=== PATIENT | male | born 1990 | race Caucasian/White ===

== ENCOUNTER → 2023-07-06 | Outpatient (CLI) | payer OTHER | LOC: MHCPAIN 08:15 | DX: M47.897 Other spondylosis, lumbosacral region (principal); M54.17 Radiculopathy, lumbosacral region | CPT/HCPCS: G0463 ==

== ENCOUNTER → 2023-07-21 | Outpatient (CLI) | payer OTHER ==
[~2023-07-21] MED LIST: Iohexol 300 - 10 ML VIAL ONE; Lidocaine PF 2% (20 MG/ML) 2 ML VIAL ONE
== END ==
LOC: MHCPAIN 13:20
DX: M54.16 Radiculopathy, lumbar region (principal)
CPT/HCPCS: J1100; Q9967

== ENCOUNTER → 2023-08-08 | Outpatient (CLI) | payer OTHER | LOC: MHCPAIN 14:24 | DX: M54.16 Radiculopathy, lumbar region (principal); M51.36 Other intervertebral disc degeneration, lumbar region | CPT/HCPCS: G0463 ==

== ENCOUNTER → 2023-08-18 | Outpatient (CLI) | payer OTHER | LOC: MHCPAIN 11:17 | DX: M54.16 Radiculopathy, lumbar region (principal) ==